=== PATIENT | female | born 1990 | race Caucasian/White ===

== ENCOUNTER 2018-01-26 16:11 | Emergency (ER) | payer OTHER ==
[~2018-01-26] VITALS: Ht 157.4 cm; Wt 81.2 kg
[~2018-01-26 16:11] MED LIST: AMOXICILLIN500 M2 PO; AMOXICILLIN500 MG PO; ANAPROX DS550 MG PO; ATIVAN1 MG PO; AUGMENTIN 875875 MG PO; BACTRIM DS 8001 TA1 PO; BUSPAR5 MG PO; CEFUROXIME AXE250 MG PO; CELEBREX200 MG PO; CIPRO250 MG PO; CIPRO500 MG PO; CIPROFLOXACIN500 MG PO; CLARITIN10 MG PO; CLEOCIN HCL150 MG PO; CLEOCIN150 MG PO; COMPAZINE10 MG PO; DAYPRO600 M1 PO; DEPAKOTE ER500 MG PO; DEPAKOTE PO; DIFLUCAN150 MG PO; EES400 MG PO; GEODON20 M1 IM; HYDROCODONE BIT1 T11 PO; KEFLEX500 MG PO; LOMOTIL 0.025 M1 TA1 PO; MACROBID100 M1 PO; MOTRIN800 MG PO; Motrin,Rufen800 MG PO; NABUMETONE500 M1 PO; NAPROSYN500 MG PO; NIX CREME RINSE T; NIX CREME RINSE60 M1 T; NKHM; PENICILLIN VK500 MG PO; PHENERGAN25 M1 PO; PRESTIQUE PO; PRISTIQ100 MG PO; Peridex 473 ML473 ML PO; SKELAXIN800 MG PO; SUBOXONE 8 MG-1 EACH SL; TRAMADOL HCL50 MG PO; TRAZODONE100 MG PO; TRIMOX,POL250 MG/5 M PO; ULTRAM50 MG PO; VALIUM10 MG PO; VIBRAMYCIN100 MG PO; VICODIN 500 MG-1 TAB PO; XANAX1 MG PO; ZANTAC150 MG PO; ZITHROMAX Z PA250 MG PO; ZOFRAN ODT4 MG SL; ZOFRAN4 MG PO; ZOLOFT50 MG PO; ZOVIRAX800 MG PO; ZYPREXA ZYDIS15 MG PO; [UNRECOGNIZED DRUG - OTHER] TP
[2018-01-26 16:15] VITALS: BP 124/60
[2018-01-26] MEDS ORDERED: AMOXICILLIN500 M2 PO (16:51)
[2018-01-26] MEDS ORDERED: FLONASE ALLERG9.9 ML NAS (16:51)
== END 2018-01-26 16:54 | disposition home or self-care (01) ==
LOC: ED 16:11
DX: J01.90 Acute sinusitis, unspecified (principal); F17.200 Nicotine dependence, unspecified, uncomplicated; Z88.8 Allergy status to other drugs, medicaments and biological substances; Z79.899 Other long term (current) drug therapy; Z90.49 Acquired absence of other specified parts of digestive tract

== ENCOUNTER 2018-04-26 13:04 | Emergency (ER) | payer OTHER ==
[~2018-04-26] VITALS: Wt 72.6 kg
[~2018-04-26 13:04] MED LIST changes: +FLONASE ALLERG9.9 ML NAS
[2018-04-26 13:05] VITALS: BP 125/90
[2018-04-26] MEDS ORDERED: KEFLEX500 M1 PO (13:18)
[2018-04-26] MEDS ORDERED: NAPROSYN500 MG PO (13:18)
== END 2018-04-26 13:40 | disposition home or self-care (01) ==
LOC: ED 13:04
DX: S01.01XA Laceration without foreign body of scalp, initial encounter (principal); R03.0 Elevated blood-pressure reading, without diagnosis of hypertension; G43.909 Migraine, unspecified, not intractable, without status migrainosus; Z88.8 Allergy status to other drugs, medicaments and biological substances; Z79.2 Long term (current) use of antibiotics; Z79.899 Other long term (current) drug therapy; Z90.49 Acquired absence of other specified parts of digestive tract; W01.198A Fall on same level from slipping, tripping and stumbling with subsequent striking against other object, initial encounter; Y93.89 Activity, other specified; Y92.89 Other specified places as the place of occurrence of the external cause; Y99.8 Other external cause status

== ENCOUNTER 2018-05-26 11:17 | Emergency (ER) | payer OTHER ==
[~2018-05-26] VITALS: Ht 154.9 cm; Wt 81.6 kg
[~2018-05-26 11:17] MED LIST changes: +KEFLEX500 M1 PO
[2018-05-26 11:18] VITALS: BP 131/69
[2018-05-26] MEDS ORDERED: NAPROSYN500 MG PO (11:31)
[2018-05-26] MEDS ORDERED: PENICILLIN VK500 MG PO (11:31)
[2018-05-26] MEDS ORDERED: ZOFRAN4 MG PO (11:31)
== END 2018-05-26 11:45 | disposition home or self-care (01) ==
LOC: ED 11:17
DX: K02.9 Dental caries, unspecified (principal); R03.0 Elevated blood-pressure reading, without diagnosis of hypertension; F17.200 Nicotine dependence, unspecified, uncomplicated; Z88.8 Allergy status to other drugs, medicaments and biological substances; Z79.2 Long term (current) use of antibiotics; Z79.899 Other long term (current) drug therapy; Z90.49 Acquired absence of other specified parts of digestive tract

== ENCOUNTER 2018-10-01 12:54 | Emergency (ER) | payer OTHER ==
[~2018-10-01] VITALS: Ht 154.9 cm
--- NOTE | ~2018-10-01 | EKG ---
[place], [place] ELECTROCARDIOGRAM REPORT NAME: MAXIMO VALE UNIT #: [id number] ROOM: DOCTOR: CHEO DRAFT REPORT BIRTHDATE: [birth year] [facility] Test Date: 2018-10-01 Test Time: 12:56:09 Pat Name: MAXIMO VALE Department: ER Room: Gender: F Middle Card Tender: Teodora Archer : 1990 Requested By: JON LARIOS Order Number: [id number] Reading MD: Sonny Kruse MD Measurements Intervals Vici Rate: 88 P: 37 MN: 163 QRS: 11 QRSD: 85 T: 15 QT: 362 QTc: 438 Interpretive Statements Sinus rhythm RSR' in V1 or V2, probably normal variant Normal ECG Electronically Signed On 10-15-2018 3:29:27 PDT by Sonny Kruse MD CM:EKGRPT:ELECTROCARDIOGRAM REPORT [id number] JON TITUS DRAFT REPORT JON LARIOS DO
[2018-10-01 13:48] LABS: BASO # 0.1 10*3/uL (0.0-0.1); BASO % 0.6 % (0.0-1.0); EOS # 0.1 10*3/uL (0.0-0.4); HEMATOCRIT 45.2 % (37.0-47.0); HEMOGLOBIN 15.3 g/dl (12.0-16.0); LYMPH # 2.3 10*3/uL (1.3-4.4); LYMPH % 24.1 % (27.0-41.0); MEAN CELL VOLUME 87.4 fl (81.0-99.0); MEAN CORPUSCULAR HGB 29.6 pg (27.0-31.0); MEAN CORPUSCULAR HGB CONC 33.8 g/dl (33.0-37.0); MONO # 0.4 10*3/uL (0.1-1.0); MONO % 4.4 % (3.0-9.0); NEUT # 6.6 10*3/uL (2.3-7.9); NEUT % 69.6 % (47.0-73.0); PLATELET COUNT AUTOMATED 260 10*3/uL (130-400); RED BLOOD COUNT 5.17 10*6/uL (4.10-5.10); RED CELL DISTRI WIDTH 12.6 % (0-14.5); WHITE BLOOD COUNT 9.5 10*3/uL (4.8-10.8)
[2018-10-01 14:00] LABS: INTERNATIONAL NORM RATIO 0.9 (2.0-3.5)
[2018-10-01 14:12] LABS: ALBUMIN 3.6 gm/dl (3.1-4.5); ALKALINE PHOSPHATASE 65 U/L (45-117); BUN 13 mg/dl (7-24); CHLORIDE 105 mmol/L (98-107); CREATININE 0.87 mg/dL (0.55-1.02); POTASSIUM 3.9 mmol/L (3.5-5.1); SGOT/AST 27 IU/L (3-35); SGPT/ALT 38 U/L (12-78); SODIUM 139 mmol/L (136-145)
[2018-10-01 14:13] LABS: TROPONIN I < 0.015 ng/ml (<0.045)
[2018-10-01 14:20] VITALS: BP 108/63
== END 2018-10-01 15:42 | disposition home or self-care (01) ==
LOC: ED 12:54
PROVIDERS: Emergency Medicine
DX: R07.89 Other chest pain (principal); R42 Dizziness and giddiness; M54.2 Cervicalgia; R68.84 Jaw pain; F17.200 Nicotine dependence, unspecified, uncomplicated; Z88.8 Allergy status to other drugs, medicaments and biological substances; Z79.899 Other long term (current) drug therapy; X50.0XXA Overexertion from strenuous movement or load, initial encounter; Y93.89 Activity, other specified; Y92.89 Other specified places as the place of occurrence of the external cause; Y99.0 Civilian activity done for income or pay

== ENCOUNTER → 2018-10-27 | Outpatient (CLI) | payer OTHER ==
[2018-10-27 14:44] LABS: BASO # 0.1 10*3/uL (0.0-0.1); BASO % 0.6 % (0.0-1.0); EOS # 0.1 10*3/uL (0.0-0.4); HEMATOCRIT 42.8 % (37.0-47.0); HEMOGLOBIN 14.3 g/dl (12.0-16.0); LYMPH # 1.8 10*3/uL (1.3-4.4); MEAN CELL VOLUME 88.1 fl (81.0-99.0); MEAN CORPUSCULAR HGB 29.4 pg (27.0-31.0); MEAN CORPUSCULAR HGB CONC 33.4 g/dl (33.0-37.0); MEAN PLATELET VOLUME 11.1 fl (9.6-12.3); MONO # 0.4 10*3/uL (0.1-1.0); MONO % 4.2 % (3.0-9.0); NEUT % 72.1 % (47.0-73.0); PLATELET COUNT AUTOMATED 219 10*3/uL (130-400); RED BLOOD COUNT 4.86 10*6/uL (4.10-5.10); RED CELL DISTRI WIDTH 12.8 % (0-14.5); WHITE BLOOD COUNT 8.3 10*3/uL (4.8-10.8)
[2018-10-27 15:11] LABS: ALBUMIN 3.4 gm/dl (3.1-4.5); ALKALINE PHOSPHATASE 58 U/L (45-117); BILIRUBIN, DIRECT < 0.1 mg/dL (0.0-0.2); BUN 12 mg/dl (7-24); CHLORIDE 107 mmol/L (98-107); CREATININE 0.88 mg/dL (0.55-1.02); POTASSIUM 3.7 mmol/L (3.5-5.1); SGOT/AST 22 IU/L (3-35); SGPT/ALT 32 U/L (12-78); SODIUM 141 mmol/L (136-145); TOTAL PROTEIN 7.5 gm/dL (6.4-8.2)
== END | disposition home or self-care (01) ==
LOC: LAB 14:03
PROVIDERS: Nurse Practitioner Family
DX: F11.20 Opioid dependence, uncomplicated (principal)

== ENCOUNTER 2019-10-22 16:20 | Inpatient (IN) | payer OTHER ==
[~2019-10-22] VITALS: Ht 152.4 cm; Wt 96.4 kg
[2019-10-22 16:45] VITALS: BP 110/53
--- NOTE | 2019-10-22 17:16 | NUR ---
Randi pa in to see pt at this time.
[2019-10-22 17:49] LABS: BASO # 0.1 10*3/uL (0.0-0.1); BASO % 0.5 % (0.0-1.0); EOS # 0.1 10*3/uL (0.0-0.4); HEMATOCRIT 40.8 % (37.0-47.0); LYMPH # 2.7 10*3/uL (1.3-4.4); LYMPH % 27.1 % (27.0-41.0); MEAN CELL VOLUME 82.4 fl (81.0-99.0); MEAN CORPUSCULAR HGB 27.9 pg (27.0-31.0); MEAN CORPUSCULAR HGB CONC 33.8 g/dl (33.0-37.0); MEAN PLATELET VOLUME 10.1 fl (9.6-12.3); MONO # 0.4 10*3/uL (0.1-1.0); MONO % 4.3 % (3.0-9.0); NEUT # 6.8 10*3/uL (2.3-7.9); NEUT % 66.9 % (47.0-73.0); PLATELET COUNT AUTOMATED 335 10*3/uL (130-400); RED BLOOD COUNT 4.95 10*6/uL (4.10-5.10); WHITE BLOOD COUNT 10.1 10*3/uL (4.8-10.8)
[2019-10-22 17:58] VITALS: BP 96/53
[2019-10-22 18:05] LABS: ALBUMIN 3.2 gm/dl (3.1-4.5); ALKALINE PHOSPHATASE 58 U/L (45-117); BUN 6 mg/dl (7-24); CHLORIDE 109 mmol/L (98-107); CREATININE 0.82 mg/dL (0.55-1.02); POTASSIUM 3.2 mmol/L (3.5-5.1); SGOT/AST 7 IU/L (3-35); SGPT/ALT 21 U/L (12-78); SODIUM 142 mmol/L (136-145); TOTAL PROTEIN 8.1 gm/dL (6.4-8.2)
--- NOTE | 2019-10-22 18:09 | NUR ---
In to see pt and pt does not need anything at this time.
[2019-10-22 18:10] LABS: ACETAMINOPHEN (TYLENOL) < 5.0 ug/ml (10-30); ETHYL ALCOHOL < 3.0 mg/dl (<3)
[2019-10-22 18:17] LABS: BILIRUBIN NEGATIVE (NEGATIVE); BLOOD 1+ (NEGATIVE); CLARITY CLOUDY (CLEAR); COLOR YELLOW (YELLOW); GLUCOSE NEGATIVE (NEGATIVE); KETONE NEGATIVE (NEGATIVE)
[2019-10-22 18:18] LABS: BACTERIA 2+; EPITHELIAL CELLS TNTC; LEUKO ESTERASE NEGATIVE (NEGATIVE); NITRITE NEGATIVE (NEGATIVE); URINE AMPHETAMINES > 1000 (1000ng/ml); URINE BARBITURATES < 200 (200ng/ml); URINE BENZODIAZEPINES > 200 (200ng/ml); URINE CANNABINOIDS (THC) > 50 (50ng/ml); URINE COCAINE < 300 (300ng/ml); URINE METHADONE < 300 (300ng/ml); URINE OPIATES > 300 (300ng/ml); UROBILINOGEN 0.2 E.U./dl (0.2-1.0)
[2019-10-22 18:20] LABS: URINE PHENCYCLIDINE < 25 (25ng/ml)
--- NOTE | 2019-10-22 19:05 | NUR ---
Pt currentlty sleeping at this time.
[2019-10-22 19:06] VITALS: BP 110/64
[2019-10-22 19:47] LABS: LIPASE 487 U/L (73-393)
[2019-10-22 19:48] LABS: BETA-HCG, QUANT < 1.0 mIU/mL (1-3)
--- NOTE | 2019-10-22 20:09 | NUR ---
Pts brown bag and pencil box given to security.
[2019-10-22 20:10] VITALS: BP 103/41
[2019-10-22 20:23] VITALS: BP 107/60
--- NOTE | 2019-10-22 20:23 | NUR ---
29 year old FEMALE admitted to room # 530 for stabilization. Reports an addiction to HEROINE last used 16 hours prior to admission. Compliant with admission procedure. Patient denies any anxiety, but is unable to sit still, taps toes to floor continuously, looks about room, unable to focus eyes on nurse during interview. See assessment forms for additional information about patient status.
--- NOTE | 2019-10-22 20:46 | NUR ---
Patient displaying withdrawal symptoms, including: irritability, anxiousness, restlessness and agitation, complicated by impulsive behavior. Patient scores a 5 on the withdrawal scale. Scheduled/PRN medications provided, doctor notified of patient's agitation and AMA potential. Will continue to monitor medication effectiveness.BENTYL,VISTARIL,ROBAXIN,REQUIP,MOTRIN,ZOFRAN,MAKI INHALER GIVEN.
--- NOTE | 2019-10-22 21:35 | NUR ---
Patient requested something to help her sleep. Trazadone was given, will monitor and reassess.
[2019-10-23] VITALS: BP 91/52
--- NOTE | 2019-10-23 04:00 | NUR ---
PATIENT SLEEPING, NO SIGNS OF DISTRESS. RESPIRATIONS EASY, NON LABORED. WILL CHECK EFFECTIVENESS.
--- NOTE | 2019-10-23 07:30 | NUR ---
PATIENT RESTING IN BED. NO COMPLAINTS. DENIES N/V/D. DENIES ANY PAIN. DENIES ANY WITHDRAWAL SYMPTOMS. ASSESSMENT COMPLETE. RESPS EASY AND REGULAR. CALL LIGHT WITHIN REACH.
[2019-10-23 08:00] VITALS: BP 106/44
--- NOTE | 2019-10-23 08:41 | NUR ---
PATIENT MEETS [facility]. PATIENT WILL FOLLOW UP WITH PATIENT CONCERNING HHER AFTERCARE PLAN. GIULIA IVEY B.A. FORENSIC SERGEANT
[2019-10-23 12:00] VITALS: BP 105/43
--- NOTE | 2019-10-23 12:58 | NUR ---
MEDICATED WITH PRN REQUIP FOR CO RESTLESS LEGS. WILL ASSESS EFFECTIVENESS.
--- NOTE | 2019-10-23 13:58 | NUR ---
PER PATIENT REQUIP EFFECTIVE.
--- NOTE | 2019-10-23 14:27 | NUR ---
24 HR chart check completed.
[2019-10-23 16:00] VITALS: BP 104/56
--- NOTE | 2019-10-23 16:24 | NUR ---
PATIENT HAS AN APPOINTMENT WITH [facility] ON SATURDAY, September AT 9:00AM. PATIENT AGREES AND UNDERSTANDS HER AFTERCARE PLAN. PATIENT HAS A RIDE HOME POST DISCHARGE. GIULIA IVEY B.A. CATH LAB
--- NOTE | 2019-10-23 17:46 | NUR ---
PATIENT REQUESTING SOMETHING FOR MUSCLE ACHES. MEDICATED WITH PRN ROBAXIN. WILL ASSESS EFFECTIVENESS.
--- NOTE | 2019-10-23 18:46 | NUR ---
PATIENT RESTING WITH EYES CLOSED. EARLIER MEDICATION FOR MUSCLES SPASMS SEEMS TO BE EFFECTIVE.
--- NOTE | 2019-10-23 19:27 | NUR ---
24 HR chart check completed.
[2019-10-23 20:00] VITALS: BP 110/59
--- NOTE | 2019-10-23 20:00 | NUR ---
Patient reports the following symptoms of withdrawal: body aches, leg pain, nausea and cocaine cravings. Patient given scheduled/PRN medication to control withdrawal symptoms. Close observation will be maintained. requip,robaxin,zofran,motrin,vistaril given. will monitor.
--- NOTE | 2019-10-23 20:50 | NUR ---
Patient requested a sleeping pill early. Trazadone given. Will monitor and reassess.
[2019-10-24] VITALS: BP 97/57
--- NOTE | 2019-10-24 07:30 | NUR ---
PATIENT RESTING IN BED WITH NO COMPLAINTS. ASSESSMENT COMPLETE. RESPS EASY AND REGULAR. PRESSURES HAVE BEEN HYPOTENSIVE. DENIES ANY N/V/D. DENIES ANY PAIN AT THIS TIME. CALL LIGHT WITHIN REACH. WILL MONITOR.
[2019-10-24 08:00] VITALS: BP 87/66
[2019-10-24 08:15] VITALS: BP 98/52
[2019-10-24 12:00] VITALS: BP 100/56
--- NOTE | 2019-10-24 13:30 | NUR ---
PATIENT ANXIOUS AND CRYING AT THIS TIME. PATIENT STATES SHE WANTS HER CLOTHES SHE CAME IN WITH AND HE BELONINGS. EXPLAINED TO PATIENT THE [facility] POLICY. CALMED PATIENT DOWN AND GAVE HER SOME PANTS TO PUT ON AND COLORING SHEETS PER REQUEST.
--- NOTE | 2019-10-24 14:10 | NUR ---
PATIENT MEDICATED WITH PRN REQUIP AND ROBAXIN FOR CO MUSCLES ACHES AND RESTLESS LEGS. WILL ASSESS EFFECTIVENESS. CALL SHIVANI EISENBERG.
--- NOTE | 2019-10-24 14:29 | NUR ---
PATIENT RESTING IN BED QUIETLY. NO NEEDS AT THIS TIME.
--- NOTE | 2019-10-24 15:10 | NUR ---
PER PATIENT REQUIP AND ROBAXIN WERE EFFECTIVE.
--- NOTE | 2019-10-24 15:47 | NUR ---
24 HR chart check completed.
[2019-10-24 16:00] VITALS: BP 99/57
[2019-10-24 20:00] VITALS: BP 106/57
--- NOTE | 2019-10-24 20:00 | NUR ---
PT RESTING IN BED AWAKE, A&OX3, PLEASANT AND COOPERATIVE. RESP NONLABORED. NO ACUTE DISTRESS NOTED. NO COMPLAINTS VOICED.
[2019-10-25] VITALS: BP 103/52
[2019-10-25 06:06] LABS: CREATININE 0.65 mg/dL (0.55-1.02)
[2019-10-25 06:07] LABS: BASO % 0.4 % (0.0-1.0); EOS # 0.2 10*3/uL (0.0-0.4); EOS % 2.3 % (1.0-4.0); HEMATOCRIT 38.4 % (37.0-47.0); LYMPH # 2.6 10*3/uL (1.3-4.4); MEAN CELL VOLUME 84.4 fl (81.0-99.0); MEAN CORPUSCULAR HGB 27.5 pg (27.0-31.0); MEAN CORPUSCULAR HGB CONC 32.6 g/dl (33.0-37.0); MEAN PLATELET VOLUME 10.2 fl (9.6-12.3); MONO # 0.4 10*3/uL (0.1-1.0); MONO % 4.4 % (3.0-9.0); NEUT % 64.6 % (47.0-73.0); PLATELET COUNT AUTOMATED 288 10*3/uL (130-400); RED BLOOD COUNT 4.55 10*6/uL (4.10-5.10); RED CELL DISTRI WIDTH 12.9 % (0-14.5); WHITE BLOOD COUNT 9.3 10*3/uL (4.8-10.8)
--- NOTE | 2019-10-25 07:30 | NUR ---
PATIENT RESTING IN BED. VOICES NO CONCERNS AT THIS TIME. NO S/S OF DISTRESS NOTED. ASSESSMENT COMPLETE. RESPS EASY AND REGULAR. CALL LIGHT WITHIN REACH.
--- NOTE | 2019-10-25 07:35 | NUR ---
24 HR chart check completed.
[2019-10-25 08:00] VITALS: BP 112/63
--- NOTE | 2019-10-25 10:30 | NUR ---
Discharge instructions reviewed with patient/family. Patient receptive and verbalizes understanding. Follow-up care arranged. Written instructions given to patient/family. BALJINDER MACIEL
--- NOTE | 2019-10-25 10:30 | NUR ---
Discharge instructions reviewed with patient/family. Patient receptive and verbalizes understanding. Follow-up care arranged. Written instructions given to patient/family. BELONGINGS GIVEN TO PATIENT FROM SECURITY. BALJINDER MACIEL
== END 2019-10-25 10:30 | disposition home or self-care (01) | DRG 817 ==
LOC: ED 16:20 → 5E 19:00 → EDHOLD 19:00 → 5E 19:29
PROVIDERS: Internal Medicine; Physician Assistant; ADMIT Emergency Medicine
DX: T40.1X2A Poisoning by heroin, intentional self-harm, initial encounter (principal); F11.10 Opioid abuse, uncomplicated; R10.9 Unspecified abdominal pain; E87.8 Other disorders of electrolyte and fluid balance, not elsewhere classified; F13.19 Sedative, hypnotic or anxiolytic abuse with unspecified sedative, hypnotic or anxiolytic-induced disorder; E44.1 Mild protein-calorie malnutrition; R82.71 Bacteriuria; E66.9 Obesity, unspecified; R31.29 Other microscopic hematuria; E87.6 Hypokalemia; F15.10 Other stimulant abuse, uncomplicated; F12.10 Cannabis abuse, uncomplicated; R00.0 Tachycardia, unspecified; I95.9 Hypotension, unspecified; R74.8 Abnormal levels of other serum enzymes; R11.2 Nausea with vomiting, unspecified; F17.200 Nicotine dependence, unspecified, uncomplicated; Z71.6 Tobacco abuse counseling; Z88.0 Allergy status to penicillin; Z88.8 Allergy status to other drugs, medicaments and biological substances; Z90.49 Acquired absence of other specified parts of digestive tract; Z68.41 Body mass index [BMI] 40.0-44.9, adult

== ENCOUNTER 2019-11-24 17:38 | Inpatient (IN) | payer OTHER ==
[~2019-11-24] VITALS: Ht 154.9 cm; Wt 94.5 kg
[2019-11-24 17:43] VITALS: BP 131/78
[2019-11-24 19:22] LABS: BASO # 0.1 10*3/uL (0.0-0.1); BASO % 0.4 % (0.0-1.0); EOS # 0.1 10*3/uL (0.0-0.4); EOS % 0.4 % (1.0-4.0); HEMATOCRIT 40.3 % (37.0-47.0); LYMPH # 1.4 10*3/uL (1.3-4.4); LYMPH % 10.3 % (27.0-41.0); MEAN CELL VOLUME 82.9 fl (81.0-99.0); MEAN CORPUSCULAR HGB CONC 32.5 g/dl (33.0-37.0); MEAN PLATELET VOLUME 9.8 fl (9.6-12.3); MONO # 0.6 10*3/uL (0.1-1.0); MONO % 4.2 % (3.0-9.0); NEUT # 11.3 10*3/uL (2.3-7.9); NEUT % 84.4 % (47.0-73.0); PLATELET COUNT AUTOMATED 252 10*3/uL (130-400); RED BLOOD COUNT 4.86 10*6/uL (4.10-5.10); RED CELL DISTRI WIDTH 13.2 % (0-14.5); WHITE BLOOD COUNT 13.4 10*3/uL (4.8-10.8)
[2019-11-24 19:33] LABS: INTERNATIONAL NORM RATIO 0.9 (2.0-3.5)
[2019-11-24 19:37] LABS: ALBUMIN 3.1 gm/dl (3.1-4.5); ALKALINE PHOSPHATASE 61 U/L (45-117); BUN 12 mg/dl (7-24); CHLORIDE 109 mmol/L (98-107); CREATININE 0.64 mg/dL (0.55-1.02); SGOT/AST 17 IU/L (3-35); SGPT/ALT 25 U/L (12-78); SODIUM 137 mmol/L (136-145); TOTAL PROTEIN 7.5 gm/dL (6.4-8.2)
[2019-11-24 19:39] LABS: ETHYL ALCOHOL < 3.0 mg/dl (<3)
[2019-11-24 21:30] VITALS: BP 129/73
[2019-11-24 21:39] LABS: BILIRUBIN NEGATIVE (NEGATIVE); BLOOD NEGATIVE (NEGATIVE); CLARITY CLEAR (CLEAR); COLOR YELLOW (YELLOW); GLUCOSE NEGATIVE (NEGATIVE); KETONE NEGATIVE (NEGATIVE); LEUKO ESTERASE NEGATIVE (NEGATIVE); NITRITE NEGATIVE (NEGATIVE); SPECIFIC GRAVITY 1.005 (1.005-1.030); UROBILINOGEN 0.2 E.U./dl (0.2-1.0)
[2019-11-24 21:46] LABS: BACTERIA TRACE; EPITHELIAL CELLS 0-2; RBC 0-2 rbc/hpf (0-2); WBC 0-2 wbc/hpf (0-5)
[2019-11-24 21:47] LABS: URINE AMPHETAMINES < 1000 (1000ng/ml); URINE BARBITURATES < 200 (200ng/ml); URINE BENZODIAZEPINES < 200 (200ng/ml); URINE CANNABINOIDS (THC) < 50 (50ng/ml); URINE COCAINE < 300 (300ng/ml); URINE METHADONE < 300 (300ng/ml); URINE OPIATES < 300 (300ng/ml)
[2019-11-24 21:48] LABS: URINE PHENCYCLIDINE < 25 (25ng/ml)
[2019-11-25] VITALS: BP 120/70
[2019-11-25 08:00] VITALS: BP 96/52
[2019-11-25 16:00] VITALS: BP 101/50
[2019-11-25 20:00] VITALS: BP 119/69
[2019-11-26] VITALS: BP 100/53
[2019-11-26 08:00] VITALS: BP 96/48
[2019-11-26 12:00] VITALS: BP 92/50
[2019-11-26 16:00] VITALS: BP 107/52
[2019-11-26 20:00] VITALS: BP 123/63
[2019-11-27] VITALS: BP 115/64
[2019-11-27 08:00] VITALS: BP 113/61
[2019-11-27] MEDS ORDERED: ZOFRAN 4 MG ED2 TAB PO (09:52)
[2019-11-27] MEDS ORDERED: ATARAX,VISTARIL50 MG PO (09:52)
== END 2019-11-27 10:17 | disposition home or self-care (01) | DRG 773 ==
LOC: ED 17:38 → EDHOLD 17:59 → 5E 17:59
PROVIDERS: Family Medicine; Internal Medicine; ADMIT Internal Medicine
DX: F11.23 Opioid dependence with withdrawal (principal); F17.210 Nicotine dependence, cigarettes, uncomplicated; F12.10 Cannabis abuse, uncomplicated; R65.10 Systemic inflammatory response syndrome (SIRS) of non-infectious origin without acute organ dysfunction; F13.10 Sedative, hypnotic or anxiolytic abuse, uncomplicated; E87.8 Other disorders of electrolyte and fluid balance, not elsewhere classified; E66.9 Obesity, unspecified; Z68.39 Body mass index [BMI] 39.0-39.9, adult; Z90.49 Acquired absence of other specified parts of digestive tract; Z81.8 Family history of other mental and behavioral disorders; Z88.0 Allergy status to penicillin; Z88.8 Allergy status to other drugs, medicaments and biological substances

== ENCOUNTER → 2023-07-25 | Outpatient (CLI) | payer OTHER ==
[~2023-07-25] MED LIST changes: +ATARAX,VISTARIL50 MG PO; +ZOFRAN 4 MG ED2 TAB PO
== END | disposition home or self-care (01) ==
LOC: RAD 10:05
PROVIDERS: ATTEND Registered Nurse
DX: R76.12 Nonspecific reaction to cell mediated immunity measurement of gamma interferon antigen response without active tuberculosis (principal)

== ENCOUNTER → 2024-03-24 | Outpatient (CLI) | payer MEDICAID ==
[2024-03-24 15:13] LABS: BASO # 0.1 10*3/uL (0.0-0.1); BASO % 0.7 % (0.0-1.0); EOS # 0.1 10*3/uL (0.0-0.4); EOS % 0.7 % (1.0-4.0); HEMATOCRIT 44.5 % (37.0-47.0); MEAN CELL VOLUME 89.5 fl (81.0-99.0); MEAN CORPUSCULAR HGB 29.4 pg (27.0-31.0); MEAN CORPUSCULAR HGB CONC 32.8 g/dl (33.0-37.0); MEAN PLATELET VOLUME 9.5 fl (9.6-12.3); MONO # 0.4 10*3/uL (0.1-1.0); NEUT # 5.5 10*3/uL (2.3-7.9); NEUT % 63.5 % (47.0-73.0); PLATELET COUNT AUTOMATED 295 10*3/uL (130-400); RED BLOOD COUNT 4.97 10*6/uL (4.10-5.10); WHITE BLOOD COUNT 8.7 10*3/uL (4.8-10.8)
[2024-03-24 16:14] LABS: ALKALINE PHOSPHATASE 67 U/L (46-116); BUN 9 mg/dl (9-23); CHLORIDE 103 mmol/L (98-107); POTASSIUM 4.2 mmol/L (3.4-5.1); SGPT/ALT 21 U/L (5-49)
[2024-03-25 08:08] LABS: HEPATITIS A AB, TOTAL Negative (Negative); HEPATITIS B SURFACE AB Reactive (.)
== END | disposition home or self-care (01) ==
LOC: LAB 14:43
PROVIDERS: ATTEND Physician Assistant Medical
DX: B18.2 Chronic viral hepatitis C (principal)